=== PATIENT | female | born 1980 | race African-American/Black ===

== ENCOUNTER 2019-04-04 10:59 | Emergency (ER) | payer OTHER, SELFPAY | END 2019-04-04 11:45 | disposition home or self-care (01) | LOC: NAV ERS 10:59 | DX: L30.9 Dermatitis, unspecified (principal); J45.909 Unspecified asthma, uncomplicated; Z79.51 Long term (current) use of inhaled steroids | CPT/HCPCS: 99282 ==

== ENCOUNTER 2020-03-28 17:54 | Emergency (ER) | payer SELFPAY ==
[2020-03-28] MEDS ORDERED: Acetaminophen 500 MG TAB ONE (18:43)
--- NOTE | 2020-03-28 19:55 | RAD ---
FRONTAL RADIOGRAPH CHEST: 03/28/20 HISTORY: COVID positive patient with shortness of breath and fatigue. FINDINGS: Mild increased linear interstitial density is noted. Evaluation is slightly limited in the left upper lobe secondary to material overlying the patient's chest. No focal consolidation or alveolar edema. IMPRESSION: No focal consolidation or alveolar edema. POS: JD
== END 2020-03-28 19:45 | disposition home or self-care (01) ==
LOC: NAV ERS 17:54
DX: U07.1 COVID-19 (principal); J45.909 Unspecified asthma, uncomplicated
CPT/HCPCS: 71045

== ENCOUNTER 2021-02-06 21:20 | Emergency (ER) | payer BC, OTHER ==
[2021-02-07 21:09] LABS: SARS-CoV-2 PCR by NAA Not Detected (NotDetected)
== END 2021-02-06 22:55 | disposition home or self-care (01) ==
LOC: NAV ERS 21:20
DX: J02.9 Acute pharyngitis, unspecified (principal); Z20.822 Contact with and (suspected) exposure to COVID-19
CPT/HCPCS: 87081; 87430; 99283; U0003; U0005

== ENCOUNTER 2021-09-14 13:10 | Emergency (ER) | payer BC ==
[~2021-09-14 13:10] MED LIST: Iopamidol 370 76% 100 ML VIAL ONE
[2021-09-14 13:54] LABS: Bilirubin Negative (Negative); Blood, Urine Negative (Negative); Clarity SL HAZY (Clear); Glucose, Urine (Dipstick) Negative (Negative); Ketone, Urine Negative (Negative); Leukocyte Negative (Negative); Nitrite Negative (Negative); Protein, Urine (Dipstick) Negative (Neg-Trace); Urobilinogen 0.2 mg/dL (Less than 2)
[2021-09-14 13:55] LABS: Pregnancy Test - Urine (BHCG) Negative (Negative); Pregu Control Background? CLEAR/WHITE (CLR/WHITE); Pregu Control Bar Appear? YES (CONTROL BAR)
[2021-09-14] MEDS ORDERED: Morphine 4 MG/ML VIAL ONE (14:29)
[2021-09-14] MEDS ORDERED: Ondansetron PF 4 MG/2 ML Vial ONE (14:29)
[2021-09-14] MEDS ORDERED: Sodium Chloride 0.9% 1,000 ML ONE (14:29)
[2021-09-14 14:31] LABS: ALT (SGPT) 10 U/L (8-55); AST (SGOT) 16 U/L (5-34); Albumin 3.9 g/dL (3.5-5.0); Alkaline Phosphatase 82 U/L (40-110); Anion Gap 14 mmol/L (10-20); BUN (Urea Nitrogen) 5 mg/dL (7.0-18.7); Bilirubin, Total 0.6 mg/dL (0.2-1.2); Calc. Creatinine Clearance 0 mL/min (70-130); Calcium 8.9 mg/dL (7.8-10.44); Carbon Dioxide 20 mmol/L (22-29); Chloride 106 mmol/L (98-107); Globulin 4.4 g/dL (2.4-3.5); Glucose 97 mg/dL (70-105); Lipase 10 U/L (8-78); Potassium 4.1 mmol/L (3.5-5.1); Protein, Total 8.3 g/dL (6.0-8.3); Sodium 136 mmol/L (136-145)
[2021-09-14 14:39] LABS: #Basophils 0.1 thou/uL (0.0-0.2); #Eosinphils 0.1 thou/uL (0.0-0.7); #Monocytes 0.5 thou/uL (0.11-0.59); #Neutrophils 3.6 thou/uL (1.40-6.50); %Basophils 1.5 % (0.0-1.0); %Eosinophils 1.6 % (0.0-10.0); %Monocytes 9.6 % (0.0-10.0); %Neutrophils 69.3 % (42.0-75.0); Anisocytosis MODERATE=16-30 cells (100X) (0-5/hpf); Hemoglobin 8.1 g/dL (12.0-16.0); Hypochromia MODERATE=16-30 cells (100X) (0-5/hpf); MDiff Complete? YES; Mean Corpuscular HGB CONC 26.4 g/dL (32.0-36.0); Mean Corpuscular Hemoglobin 16.8 pg (27.0-31.0); Mean Corpuscular Volume 63.8 fL (78.0-98.0); Mean Platelet Volume 7.2 fL (7.4-10.4); Microcytosis MARKED = >30 cells (100X) (0-5/hpf); Platelet Count 295 thou/uL (130-400); RBC Distribution Width 18.4 % (11.5-14.5); Red Blood Cell (RBC) Count 4.81 mill/uL (4.20-5.40); Target Cells MODERATE= 6-15 cells (100X) (0-1/hpf); Tear Drops SLIGHT = 2-5 cells (100X) (0-1/hpf); White Blood Cell (WBC) Count 5.2 thou/uL (4.8-10.8)
[2021-09-14] MEDS ORDERED: Ketorolac Tromethamine 30 MG/ML VIAL ONE (15:48)
== END 2021-09-14 16:05 | disposition home or self-care (01) ==
LOC: NAV ERS 13:10
DX: D27.1 Benign neoplasm of left ovary (principal); D50.9 Iron deficiency anemia, unspecified
CPT/HCPCS: 74177; 80053; 81003; 81025; 83690; 85025; 96365; 96366; 96375; J1885; J2270; J2405; J7050; Q9967